=== PATIENT | female | born 1935 | race African-American/Black ===

== ENCOUNTER 2016-11-08 08:51 | Inpatient (IN) | payer OTHER ==
[~2016-11-08] VITALS: Ht 162.6 cm; Wt 63.5 kg
--- NOTE | ~2016-11-08 | H ---
[facility] [place] [address] HISTORY AND PHYSICAL Name: TRISTIN HENDERSON Room #: 407-P ADM IN M.R.#: [id number] Admission: 11/08/16 Attend Phys: Ankur Garrett MD Discharge: Date of : 33 Report #: [id number] THIS REPORT FOR: //name// CC: Ariela Garrett DATE OF SERVICE: 11/08/2016 CHIEF COMPLAINT: Pain in the legs, pain in the abdomen, and generalized weakness. HISTORY OF PRESENT ILLNESS: The patient is an 81-year-old female who comes to the hospital with above complaints. The patient states that she has had her symptoms for a long time. She has had on and off weakness. At this time, she had exacerbation of her abdominal pain, as well as lower extremity pain. She is on gabapentin, but she is not sure what condition she has. In the emergency room, the patient had CT scan of the abdomen, that showed no acute findings. Her creatinine was higher from baseline, at 2.6, from 1.4. She was also found to have urinary tract infection. The patient is hemodynamically stable and afebrile. She has no shortness of breath, no chest pain, dizziness, blurry vision, or other symptoms. PAST MEDICAL HISTORY: 1. Chronic kidney disease stage 3. 2. Hypertension. 3. Status post hemicolectomy, for suspected colon cancer. Final pathology did not show cancer. CURRENT MEDICATIONS: Benazepril/hydrochlorothiazide 10/12.5 mg half pill a day, Voltaren 75 mg b.i.d. as needed, gabapentin 100 mg b.i.d., Zofran 8 mg every 6 hours as needed, ranitidine 150 mg b.i.d., and Tramadol 50 mg q.4 hours as needed. FAMILY HISTORY: Reviewed and not pertinent to the patient's current condition. SOCIAL HISTORY: The patient lives with her children. She does not smoke cigarettes and does not drink alcohol. REVIEW OF SYSTEMS: As above in HPI section. All other system reviews are negative. PHYSICAL EXAMINATION: GENERAL: The patient is an elderly female who looks tired. VITAL SIGNS: Blood pressure is 137/71, heart rate is 56, respiration is 18, and temperature is 97.4. [address] [address] HISTORY AND PHYSICAL Name: TRISTIN HENDERSON Room #: [address] [place] [address] IN M.R.#: [id number] Admission: 11/08/16 Attend Phys: Ankur Garrett MD Discharge: Date of : 33 Report #: [id number] HEENT: Pupils are equal. Eye movements are normal. The patient has anicteric sclerae. Oral mucosa is moist. Ear examination is deferred. NECK: Supple. She has no thyromegaly. No JVD is appreciated. The patient has no carotid bruits. RESPIRATORY: Chest moves symmetrically with breathing. The patient has clear breath sounds bilaterally. She has no wheezes or crackles. CARDIOVASCULAR: The patient has regular rhythm and rate. She has no murmurs, gallops, or rubs. GASTROINTESTINAL: Abdomen is soft, nondistended, and nontender. Bowel sounds are present. Hepatomegaly or splenomegaly is not palpated. The patient has post-colectomy scar on the abdomen. MUSCULOSKELETAL: Range of motion is normal. She has no joint deformities. NEUROLOGIC: The patient is now alert and oriented x3. She has no focal deficits. SKIN: The patient has keloid on the abdomen. No other skin lesions are appreciated. Lymphadenopathy is not palpated. LABS: Basic metabolic profile shows normal electrolytes. Creatinine is 2.6, from recent baseline of 1.4 from December of last year. CBC with differential is normal except with mild anemia, hemoglobin of 10.6, and hematocrit of 31.8. Urinalysis shows white cells between 5 and 15, trace leukoesterase, and bacteria. Chest x-ray shows no infiltrates. ASSESSMENT AND PLAN: 1. Generalized weakness, likely due to dehydration, worsening renal failure, and urinary tract infection. The patient will be started on IV fluids and antibiotics. Urine is submitted for culture. We will check TSH and vitamin B12 levels. 2. Acute kidney injury on chronic kidney disease stage 3. Creatinine is 2.6, from 1.4. Benazepril and hydrochlorothiazide . The patient will be treated with amlodipine for hypertension. 3. Hypertension. As noted, we will treat the patient with amlodipine. 4. Chronic pain, affecting legs and back. The patient is already on tramadol. Gabapentin will be resumed. 5. Deep venous thrombosis prophylaxis. Renally adjusted Lovenox. By: 1431 1537 Ankur Garrett MD /nt
--- NOTE | ~2016-11-08 | EKG ---
[place] [address] [facility] [place] [address] ELECTROCARDIOGRAM REPORT Name: TRISTIN HENDERSON Room #: 407-P ADM IN M.R.#: [id number] Admission: 11/08/16 Attend Phys: Ankur Garrett MD Discharge: Date of : 33 Report #: [id number] THIS REPORT FOR: //name// [facility] ED Test Date: 2016-11-08 Test Time: 09:07:35 Pat Name: TRISTIN HENDERSON Department: Room: 407 Gender: F Old Testament Professor: CHRISTINE : 1935 Requested By: Sung Rangel Order Number: [id number] MD: Dylon Bucio Measurements Intervals [place] Rate: 70 P: 19 NE: 186 QRS: -6 QRSD: 103 T: 50 QT: 402 QTc: 434 Interpretive Statements Sinus rhythm Baseline wander in lead(s) I Compared to ECG 09/18/2015 06:52:44 First degree AV block no longer present Electronically Signed On 11-08-2016 12:46:19 CDT by Dylon Bucio [email or web address] <ELECTRONICALLY SIGNED> By: Dylon Bucio MD 11/08/16 1246 6 6 Dylon Bucio MD /ADRIANO
[~2016-11-08 08:51] MED LIST: ASPIRIN EC81 M1 PO; ATIVAN0.5 MG PO; BACLOFEN 10 MG10 MG PO; BENAZEPRIL HCL10 MG PO; BENAZEPRIL-HCT1 EA11 PO; BENAZEPRIL-HCT1 EAC1 PO; BENAZEPRIL-HCT1 EACH PO; DIAZEPAM 5 MG5 M1 PO; DICLOFENAC SODI75 M1 PO; DICLOFENAC SODI75 MG PO; FLEXERIL PO; GABAPENTIN 100100 MG PO; GABAPENTIN100 MG PO; NEURONTIN 300300 M1; NORCO 5-325 TA1 EACH PO; NORVASC5 MG PO; TRAMADOL 50 MG50 MG PO; TRAMADOL/APAP; ULTRAM 50MG TAB50 MG PO; VALIUM5 MG PO; VOLTAREN GEL 1100 G1 TOP; ZANTAC 150MG T150 M1 PO; ZANTAC 150MG T150 MG PO; ZOFRAN ODT8 MG PO; [UNRECOGNIZED DRUG - REMARK]
[2016-11-08 08:52] VITALS: BP 125/71
[2016-11-08 09:10] LABS: URINE BILIRUBIN NEGATIVE (Negative); URINE BLOOD NEGATIVE (Negative); URINE COLOR YELLOW; URINE GLUCOSE-RANDOM* NEGATIVE (Negative); URINE KETONES NEGATIVE (Negative); URINE PROTEIN (DIPSTICK) NEGATIVE (Negative); URINE UROBILINOGEN 0.2 E.U./dl (0.2-1.0)
[2016-11-08 09:17] LABS: URINE LEUKOCYTES-REFLEX 1+ (Negative)
[2016-11-08 09:18] LABS: CASTS None Seen /LPF (None Seen); CRYSTALS None Seen /LPF (None Seen); SQUAMOUS >10 Many /LPF (0-3); URINE RBC None Seen /HPF (0-2); URINE WBC-REFLEX 6-15 Few /HPF (0-5)
[2016-11-08 09:26] LABS: HEMATOCRIT 31.8 % (37.0-47.0); HEMOGLOBIN 10.6 gm/dL (12.0-15.0); MCH 29.8 pg (26.0-34.0); MCHC 33.2 g/dL (28.0-37.0); MCV 89.8 fL (80.0-100.0); RBC 3.54 mil/uL (4.20-5.00); RDW 13.5 % (10.5-14.5); WBC 4.3 thou/uL (4.0-11.0)
[2016-11-08 09:35] LABS: ANION GAP 5 mmol/L (7-16); BUN 41 mg/dL (7-18); CALCIUM 9.5 mg/dL (8.5-10.1); CHLORIDE 106 mmol/L (98-107); CO2 27 mmol/L (21-32); CREATININE 2.6 mg/dL (0.6-1.0); GLUCOSE 87 mg/dL (74-106); POTASSIUM 4.7 mmol/L (3.5-5.1); SODIUM 138 mmol/L (136-145)
[2016-11-08 09:43] LABS: ALBUMIN 3.8 g/dL (3.4-5.0); ALKALINE PHOSPHATASE 113 U/L (46-116); SGOT 22 U/L (15-37); SGPT 19 U/L (30-65); TOTAL BILIRUBIN 0.8 mg/dL (<0.1-1.0); TOTAL PROTEIN 7.6 g/dL (6.4-8.2); TROPONIN-I < 0.04 ng/mL (<0.04-0.07)
[2016-11-08 10:44] VITALS: BP 134/70
[2016-11-08 11:22] VITALS: BP 132/66
[2016-11-08 11:35] VITALS: BP 137/71
[2016-11-08 15:26] LABS: TSH 1.347 uIU/mL (0.358-3.740)
[2016-11-08 17:13] VITALS: BP 129/62
[2016-11-08 19:13] VITALS: BP 148/59
[2016-11-09 03:47] LABS: ABSOLUTE NEUTROPHILS 2.9 thou/uL (1.4-8.2); EOSINOPHILS 3.4 % (0.0-3.0); HEMATOCRIT 29.5 % (37.0-47.0); HEMOGLOBIN 9.9 gm/dL (12.0-15.0); LYMPHOCYTES 26.1 % (24.0-44.0); MCH 30.1 pg (26.0-34.0); MCHC 33.6 g/dL (28.0-37.0); MCV 89.8 fL (80.0-100.0); MONOCYTES 8.2 % (1.0-8.0); PLATELET COUNT 143 thou/uL (150-400); POLYS 61.3 % (36.0-66.0); RBC 3.28 mil/uL (4.20-5.00); RDW 13.4 % (10.5-14.5); WBC 4.7 thou/uL (4.0-11.0)
[2016-11-09 04:00] VITALS: BP 146/69
[2016-11-09 04:01] LABS: CALCIUM 9.1 mg/dL (8.5-10.1); CREATININE 1.8 mg/dL (0.6-1.0); POTASSIUM 4.3 mmol/L (3.5-5.1)
[2016-11-09 05:59] LABS: MANUAL DIFF NO
[2016-11-09 08:09] VITALS: BP 127/70
[2016-11-09 17:44] VITALS: BP 134/67
[2016-11-09 19:21] VITALS: BP 162/75
[2016-11-10 03:55] VITALS: BP 169/82
[2016-11-10 05:47] LABS: ABSOLUTE NEUTROPHILS 2.9 thou/uL (1.4-8.2); BASOPHILS 1.5 % (0.0-2.0); EOSINOPHILS 2.5 % (0.0-3.0); HEMATOCRIT 33.3 % (37.0-47.0); HEMOGLOBIN 10.9 gm/dL (12.0-15.0); LYMPHOCYTES 25.7 % (24.0-44.0); MCH 29.7 pg (26.0-34.0); MCHC 32.8 g/dL (28.0-37.0); MCV 90.7 fL (80.0-100.0); MONOCYTES 8.4 % (1.0-8.0); PLATELET COUNT 194 thou/uL (150-400); POLYS 61.9 % (36.0-66.0); RBC 3.67 mil/uL (4.20-5.00); RDW 13.6 % (10.5-14.5); WBC 4.7 thou/uL (4.0-11.0)
[2016-11-10 05:51] LABS: MANUAL DIFF NO
[2016-11-10 05:53] LABS: CALCIUM 9.4 mg/dL (8.5-10.1); CREATININE 1.4 mg/dL (0.6-1.0)
[2016-11-10 08:00] VITALS: BP 154/91
[2016-11-10] MEDS ORDERED: AMLODIPINE BESYL5 M1 PO (11:29)
[2016-11-10] MEDS ORDERED: CEFPODOXIME PR200 M1 PO (11:29)
[2016-11-10 12:58] VITALS: BP 154/91
[2016-11-10 16:05] VITALS: BP 154/91
== END 2016-11-10 13:42 | disposition home health service (06) | DRG 683 ==
LOC: ER 08:51 → 4N 11:02 → EROBS 11:02 → 4N 11:24 → ENTRNSPT 11-10 13:29 → EDTRNSPTSTS 11-10 13:33 → 4N 11-10 13:42
PROVIDERS: Emergency Medicine; Internal Medicine Endocrinology, Diabetes & Metabolism
DX: N17.9 Acute kidney failure, unspecified (principal); N39.0 Urinary tract infection, site not specified; N18.3 Chronic kidney disease, stage 3 (moderate); E86.0 Dehydration; I12.9 Hypertensive chronic kidney disease with stage 1 through stage 4 chronic kidney disease, or unspecified chronic kidney disease; G89.29 Other chronic pain; Z88.0 Allergy status to penicillin; Z91.041 Radiographic dye allergy status
CPT/HCPCS: 10091

== ENCOUNTER 2017-01-18 10:22 | Emergency (ER) | payer OTHER ==
[~2017-01-18] VITALS: Ht 162.6 cm; Wt 63.5 kg
[~2017-01-18 10:22] MED LIST changes: +AMLODIPINE BESYL5 M1 PO; +CEFPODOXIME PR200 M1 PO
[2017-01-18 11:02] LABS: URINE BILIRUBIN NEGATIVE (Negative); URINE BLOOD NEGATIVE (Negative); URINE COLOR YELLOW; URINE GLUCOSE-RANDOM* NEGATIVE (Negative); URINE KETONES NEGATIVE (Negative); URINE NITRITE NEGATIVE (Negative); URINE PROTEIN (DIPSTICK) NEGATIVE (Negative); URINE SPECIFIC GRAVITY 1.015 (1.003-1.035); URINE UROBILINOGEN 0.2 E.U./dl (0.2-1.0)
[2017-01-18] MEDS ORDERED: VALIUM5 MG PO (11:10)
[2017-01-18] MEDS ORDERED: NEURONTIN300 MG PO (11:12)
[2017-01-18] MEDS ORDERED: VITAMIN D250000 UNIT PO (11:12)
[2017-01-18] MEDS ORDERED: DICLOFENAC SODI75 MG PO (11:13)
[2017-01-18] MEDS ORDERED: TRAMADOL 50 MG50 MG PO (11:13)
== END 2017-01-18 11:24 | disposition home or self-care (01) ==
LOC: ER 10:22
PROVIDERS: Emergency Medicine
DX: M54.5 Low back pain (principal)

== ENCOUNTER 2017-08-29 07:53 | Emergency (ER) | payer OTHER ==
[~2017-08-29] VITALS: Ht 162.6 cm; Wt 59.0 kg
--- NOTE | ~2017-08-29 | EKG ---
[place] [address] [facility] [place] [address] ELECTROCARDIOGRAM REPORT Name: BRAXTON HENDERSONJOSE ROBERTO TONEY [facility] [id number] Admission: 08/29/17 Attend Phys: Discharge: 08/29/17 Date of : 33 Report #: [id number] THIS REPORT FOR: //name// [facility] ED Test Date: 2017-08-29 Test Time: 08:14:09 Pat Name: TRISTIN HENDERSON Department: Room: Gender: F Electronic Systems Technician: : 1935 Requested By: Norma Chaves Order Number: [id number] MD: Collins Khan Measurements Intervals [place] Rate: 65 P: 11 [place]: 194 QRS: -9 QRSD: 98 T: 72 QT: 388 QTc: 404 Interpretive Statements Sinus rhythm Poor R wave progression Compared to ECG 11/08/2016 09:07:35 No significant change was found Electronically Signed On 08-31-2017 9:14:25 CDT by Collins Khan [email or web address] <ELECTRONICALLY SIGNED> By: Collins Khan MD, [facility] 08/31/17913 3 3 Collins Khan MD, FACC /EPI
[~2017-08-29 07:53] MED LIST changes: +NEURONTIN300 MG PO; +VITAMIN D250000 UNIT PO
[2017-08-29 08:37] LABS: ABSOLUTE NEUTROPHILS 2.5 thou/uL (1.4-8.2); BASOPHILS 1.2 % (0.0-2.0); EOSINOPHILS 2.5 % (0.0-3.0); HEMATOCRIT 31.1 % (37.0-47.0); HEMOGLOBIN 10.7 gm/dL (12.0-15.0); LYMPHOCYTES 30.3 % (24.0-44.0); MCH 29.9 pg (26.0-34.0); MCHC 34.3 g/dL (28.0-37.0); MCV 87.3 fL (80.0-100.0); MONOCYTES 7.5 % (1.0-8.0); PLATELET COUNT 200 thou/uL (150-400); POLYS 58.5 % (36.0-66.0); RBC 3.57 mil/uL (4.20-5.00); RDW 13.6 % (10.5-14.5); WBC 4.3 thou/uL (4.0-11.0)
[2017-08-29 08:46] LABS: ANION GAP 5 mmol/L (7-16); BUN 18 mg/dL (7-18); CALCIUM 9.2 mg/dL (8.5-10.1); CHLORIDE 111 mmol/L (98-107); CO2 26 mmol/L (21-32); CREATININE 1.3 mg/dL (0.6-1.0); GLUCOSE 94 mg/dL (74-106); SODIUM 142 mmol/L (136-145)
[2017-08-29 08:55] LABS: TROPONIN-I <0.06 ng/mL (<0.06)
[2017-08-29] MEDS ORDERED: TRAMADOL 50 MG50 MG PO (09:08)
== END 2017-08-29 09:36 | disposition home or self-care (01) ==
LOC: ER 07:53
PROVIDERS: Emergency Medicine
DX: M54.9 Dorsalgia, unspecified (principal); I10 Essential (primary) hypertension; Z91.041 Radiographic dye allergy status; Z88.0 Allergy status to penicillin

== ENCOUNTER 2017-09-11 15:27 | Emergency (ER) | payer OTHER ==
[~2017-09-11] VITALS: Ht 162.6 cm; Wt 59.4 kg
[2017-09-11 16:07] LABS: ABSOLUTE NEUTROPHILS 3.8 thou/uL (1.4-8.2); EOSINOPHILS 1.6 % (0.0-3.0); HEMATOCRIT 34.4 % (37.0-47.0); HEMOGLOBIN 11.4 gm/dL (12.0-15.0); LYMPHOCYTES 22.7 % (24.0-44.0); MCH 29.7 pg (26.0-34.0); MCHC 33.3 g/dL (28.0-37.0); MCV 89.2 fL (80.0-100.0); MONOCYTES 7.1 % (1.0-8.0); PLATELET COUNT 217 thou/uL (150-400); POLYS 67.6 % (36.0-66.0); RBC 3.86 mil/uL (4.20-5.00); RDW 14.1 % (10.5-14.5); WBC 5.6 thou/uL (4.0-11.0)
[2017-09-11 16:15] LABS: CREATININE 1.6 mg/dL (0.6-1.0); POTASSIUM 3.4 mmol/L (3.5-5.1)
[2017-09-11 16:21] LABS: ALBUMIN 3.7 g/dL (3.4-5.0); DIRECT BILIRUBIN 0.1 mg/dL (<0.1-0.3); TOTAL BILIRUBIN 0.7 mg/dL (<0.1-1.0); TOTAL PROTEIN 7.6 g/dL (6.4-8.2)
[2017-09-11 16:55] LABS: URINE BILIRUBIN NEGATIVE (Negative); URINE BLOOD NEGATIVE (Negative); URINE CLARITY CLEAR; URINE COLOR YELLOW; URINE GLUCOSE-RANDOM* NEGATIVE (Negative); URINE KETONES NEGATIVE (Negative); URINE LEUKOCYTES NEGATIVE (Negative); URINE NITRITE NEGATIVE (Negative); URINE PROTEIN (DIPSTICK) NEGATIVE (Negative); URINE SPECIFIC GRAVITY 1.015 (1.005-1.035)
[2017-09-11] MEDS ORDERED: COLACE100 MG PO (17:14)
[2017-09-11] MEDS ORDERED: CITRATE OF MAG296 ML PO (17:14)
== END 2017-09-11 18:08 | disposition home or self-care (01) ==
LOC: ER 15:27
PROVIDERS: Emergency Medicine
DX: E86.0 Dehydration (principal); K59.00 Constipation, unspecified; I10 Essential (primary) hypertension; Z85.028 Personal history of other malignant neoplasm of stomach; Z91.041 Radiographic dye allergy status; Z88.0 Allergy status to penicillin

== ENCOUNTER 2017-12-14 16:19 | Emergency (ER) | payer OTHER ==
[~2017-12-14] VITALS: Ht 167.6 cm; Wt 58.5 kg
--- NOTE | ~2017-12-14 | EKG ---
[address] [address] ELECTROCARDIOGRAM REPORT Name: TRISTIN HENDERSON [id number] Admission: 12/14/17 Attend Phys: Discharge: 12/14/17 Date of : 33 Report #: [id number] THIS REPORT FOR: //name// [facility] ED Test Date: 2017-12-14 Test Time: 16:35:49 Pat Name: TRISTIN HENDERSON Department: Room: Gender: F Taker Off Braker Machine: MIAH : 1935 Requested By: Mary Ibrahim Order Number: [id number] MD: Luis Eduardo Burgess Measurements Intervals [place] Rate: 83 P: 36 [place]: 189 QRS: 27 QRSD: 98 T: 35 QT: 398 QTc: 468 Interpretive Statements Sinus rhythm Probable left atrial enlargement Compared to ECG 08/29/2017 08:14:09 Poor R-wave progression no longer present Electronically Signed On 12-15-2017 17:08:34 CDT by Luis Eduardo Burgess [email or web address] <ELECTRONICALLY SIGNED> By: Luis Eduardo Burgess MD 12/15/17 1708 34 34 Luis Eduardo Burgess MD /ADRIANO
[~2017-12-14 16:19] MED LIST changes: +CITRATE OF MAG296 ML PO; +COLACE100 MG PO
[2017-12-14 17:28] LABS: ANION GAP 10 mmol/L (7-16); BUN 15 mg/dL (7-18); CALCIUM 10.3 mg/dL (8.5-10.1); CHLORIDE 106 mmol/L (98-107); CO2 22 mmol/L (21-32); CREATININE 1.3 mg/dL (0.6-1.0); GLUCOSE 97 mg/dL (74-106); POTASSIUM 4.3 mmol/L (3.5-5.1); SODIUM 138 mmol/L (136-145)
[2017-12-14 17:37] LABS: ALBUMIN 3.6 g/dL (3.4-5.0); SGOT 24 U/L (15-37); SGPT 15 U/L (30-65); TOTAL BILIRUBIN 0.7 mg/dL (<0.1-1.0); TOTAL PROTEIN 8.1 g/dL (6.4-8.2); TROPONIN-I <0.06 ng/mL (<0.06)
[2017-12-14 17:44] LABS: ABSOLUTE NEUTROPHILS 3.8 thou/uL (1.4-8.2); BASOPHILS 1.1 % (0.0-2.0); EOSINOPHILS 2.2 % (0.0-3.0); HEMATOCRIT 33.7 % (37.0-47.0); HEMOGLOBIN 11.6 gm/dL (12.0-15.0); LYMPHOCYTES 21.7 % (24.0-44.0); MCH 30.6 pg (26.0-34.0); MCHC 34.4 g/dL (28.0-37.0); MONOCYTES 6.7 % (1.0-8.0); PLATELET COUNT 218 thou/uL (150-400); POLYS 68.3 % (36.0-66.0); RBC 3.78 mil/uL (4.20-5.00); RDW 14.5 % (10.5-14.5); WBC 5.6 thou/uL (4.0-11.0)
[2017-12-14] MEDS ORDERED: TRAMADOL 50 MG50 MG PO (17:57)
[2017-12-14] MEDS ORDERED: MOBIC7.5 MG PO (17:57)
== END 2017-12-14 18:11 | disposition home or self-care (01) ==
LOC: ER 16:19
PROVIDERS: Nurse Practitioner Family
DX: M54.6 Pain in thoracic spine (principal); I10 Essential (primary) hypertension; Z88.0 Allergy status to penicillin; Z91.041 Radiographic dye allergy status

== ENCOUNTER 2018-05-27 22:56 | Emergency (ER) | payer OTHER ==
[~2018-05-27] VITALS: Ht 165.1 cm; Wt 68.0 kg
[~2018-05-27 22:56] MED LIST changes: +MOBIC7.5 MG PO
[2018-05-27 23:57] LABS: ABSOLUTE NEUTROPHILS 3.8 thou/uL (1.4-8.2); EOSINOPHILS 1.2 % (0.0-3.0); HEMATOCRIT 32.7 % (37.0-47.0); HEMOGLOBIN 11.1 gm/dL (12.0-15.0); LYMPHOCYTES 27.7 % (24.0-44.0); MCH 29.8 pg (26.0-34.0); MCHC 33.9 g/dL (28.0-37.0); MCV 88.1 fL (80.0-100.0); MONOCYTES 9.9 % (1.0-8.0); PLATELET COUNT 214 thou/uL (150-400); POLYS 60.2 % (36.0-66.0); RDW 13.8 % (10.5-14.5); WBC 6.3 thou/uL (4.0-11.0)
[2018-05-28 00:02] LABS: CALCIUM 9.4 mg/dL (8.5-10.1); CREATININE 1.5 mg/dL (0.6-1.0); MAGNESIUM 2.2 mg/dL (1.8-2.4); POTASSIUM 3.7 mmol/L (3.5-5.1)
[2018-05-28 00:38] VITALS: BP 169/84
== END 2018-05-28 00:39 | disposition home or self-care (01) ==
LOC: ER 22:56
PROVIDERS: Emergency Medicine
DX: R25.2 Cramp and spasm (principal); R10.84 Generalized abdominal pain; I10 Essential (primary) hypertension; Z91.041 Radiographic dye allergy status; Z88.0 Allergy status to penicillin

== ENCOUNTER 2018-09-01 12:21 | Emergency (ER) | payer OTHER ==
[~2018-09-01] VITALS: Ht 165.1 cm; Wt 61.2 kg
[2018-09-01 13:37] LABS: ABSOLUTE NEUTROPHILS 3.2 thou/uL (1.4-8.2); EOSINOPHILS 1.3 % (0.0-3.0); HEMATOCRIT 34.6 % (37.0-47.0); HEMOGLOBIN 11.4 gm/dL (12.0-15.0); LYMPHOCYTES 23.7 % (24.0-44.0); MCH 29.4 pg (26.0-34.0); MCV 89.2 fL (80.0-100.0); MONOCYTES 8.3 % (1.0-8.0); PLATELET COUNT 206 thou/uL (150-400); POLYS 65.7 % (36.0-66.0); RBC 3.89 mil/uL (4.20-5.00); RDW 13.7 % (10.5-14.5); WBC 4.9 thou/uL (4.0-11.0)
[2018-09-01 13:47] LABS: URINE BILIRUBIN NEGATIVE (Negative); URINE BLOOD NEGATIVE (Negative); URINE CLARITY CLEAR; URINE COLOR YELLOW; URINE GLUCOSE-RANDOM* NEGATIVE (Negative); URINE KETONES NEGATIVE (Negative); URINE LEUKOCYTES-REFLEX NEGATIVE (Negative); URINE NITRITE-REFLEX NEGATIVE (Negative); URINE PROTEIN (DIPSTICK) NEGATIVE (Negative); URINE UROBILINOGEN 0.2 E.U./dl (0.2-1.0)
[2018-09-01 13:48] LABS: ANION GAP 6 mmol/L (7-16); BUN 13 mg/dL (7-18); CALCIUM 9.8 mg/dL (8.5-10.1); CHLORIDE 108 mmol/L (98-107); CO2 28 mmol/L (21-32); CREATININE 1.5 mg/dL (0.6-1.0); GLUCOSE 141 mg/dL (74-106); POTASSIUM 3.4 mmol/L (3.5-5.1); SODIUM 142 mmol/L (136-145)
[2018-09-01 13:58] LABS: ALBUMIN 3.4 g/dL (3.4-5.0); LIPASE 156 U/L (73-393); SGOT 12 U/L (15-37); SGPT 14 U/L (30-65); TOTAL BILIRUBIN 0.5 mg/dL (<0.1-1.0); TOTAL PROTEIN 7.3 g/dL (6.4-8.2); TROPONIN-I <0.06 ng/mL (<0.06)
[2018-09-01 18:26] VITALS: BP 183/78
--- NOTE | 2018-09-02 09:42 | EKG ---
[place] [address] [facility] [place] [address] ELECTROCARDIOGRAM REPORT Name: TRISTIN HENDERSON [facility] [id number] ������������������ Admission: 09/01/18 ������������������ Attend Phys: Discharge: 09/01/18 ������������������ Date of : 33 Report #: [id number] ����������������������������������������������������������������� [id number] THIS REPORT FOR: //name// [facility] ED Test Date: 2018-09-01 Test Time: 13:32:39 Pat Name: TRISTIN HENDERSON Department: Room: Gender: F Cellular Equipment Repairer: DAYNE : 1935 Requested By: Elliot Castle Order Number: [id number] MD: Collins Khan Measurements Intervals [place] Rate: 73 P: 52 FL: 211 QRS: -4 QRSD: 91 T: 73 QT: 410 QTc: 452 Interpretive Statements Sinus rhythm Possible anteroseptal infarct, age indeterminate no previous ECGs available for comparison Electronically Signed On 09-02-2018 9:42:11 CDT by Collins Khna [email or web address] ��������������������������������������������� <ELECTRONICALLY SIGNED> ���������������������������������������� By: Collins Khan MD, [facility] ��������������������������������������������� 09/02/18 0942 1332 1332 Collins Khan MD, FACC /EPI
== END 2018-09-01 18:29 | disposition home or self-care (01) ==
LOC: ER 12:21
PROVIDERS: Emergency Medicine
DX: I10 Essential (primary) hypertension (principal); R42 Dizziness and giddiness; Z91.14 Patient's other noncompliance with medication regimen; Z91.041 Radiographic dye allergy status; Z88.0 Allergy status to penicillin

== ENCOUNTER 2018-12-13 15:39 | Inpatient (IN) | payer OTHER ==
[~2018-12-13] VITALS: Ht 165.1 cm; Wt 64.7 kg
[2018-12-13 15:41] VITALS: BP 193/111
[2018-12-13 16:28] LABS: URINE BILIRUBIN NEGATIVE (Negative); URINE BLOOD NEGATIVE (Negative); URINE CLARITY CLEAR; URINE COLOR YELLOW; URINE GLUCOSE-RANDOM* NEGATIVE (Negative); URINE KETONES NEGATIVE (Negative); URINE LEUKOCYTES-REFLEX NEGATIVE (Negative); URINE NITRITE-REFLEX NEGATIVE (Negative); URINE PROTEIN (DIPSTICK) NEGATIVE (Negative); URINE SPECIFIC GRAVITY 1.015 (1.005-1.035); URINE UROBILINOGEN 0.2 E.U./dl (0.2-1.0)
[2018-12-13 16:31] LABS: ABSOLUTE NEUTROPHILS 3.9 thou/uL (1.4-8.2); BASOPHILS 0.8 % (0.0-2.0); EOSINOPHILS 1.4 % (0.0-3.0); HEMATOCRIT 38.3 % (37.0-47.0); HEMOGLOBIN 12.4 gm/dL (12.0-15.0); LYMPHOCYTES 29.7 % (24.0-44.0); MCH 29.5 pg (26.0-34.0); MCHC 32.3 g/dL (28.0-37.0); MCV 91.4 fL (80.0-100.0); MONOCYTES 8.7 % (1.0-8.0); PLATELET COUNT 238 thou/uL (150-400); POLYS 59.4 % (36.0-66.0); RBC 4.19 mil/uL (4.20-5.00); RDW 13.9 % (10.5-14.5); WBC 6.6 thou/uL (4.0-11.0)
[2018-12-13 16:35] LABS: CALCIUM 9.8 mg/dL (8.5-10.1); CREATININE 1.4 mg/dL (0.6-1.0); POTASSIUM 3.8 mmol/L (3.5-5.1)
[2018-12-13 16:43] LABS: ALBUMIN 3.7 g/dL (3.4-5.0); DIRECT BILIRUBIN 0.1 mg/dL (<0.1-0.3); TOTAL BILIRUBIN 0.5 mg/dL (<0.1-1.0); TOTAL PROTEIN 8.4 g/dL (6.4-8.2)
[2018-12-13] MEDS ORDERED: NEURONTIN 300300 M1 PO (17:09)
--- NOTE | 2018-12-13 17:09 | NUR ---
RANDI RICH (DAUGHTER, DPOA) [phone] (HOME),
[2018-12-13 19:55] VITALS: BP 162/84
[2018-12-13 20:00] VITALS: BP 184/96
[2018-12-13 21:53] VITALS: BP 144/86
--- NOTE | 2018-12-14 03:53 | NUR ---
Fleets enema administered at this time as ordered,pt tolerated well. Will await results. Pt admitted from ER at 1999 via cart accompanied by family members. Admission paperwork signed. Pt is A/OX2,confused making needs known at times. Fall precautions implemented. Denied pain on admission. Sacral wound noted,pictures taken. Pt is cont/incont of B&B.Up with assist of 1 RW/GB. IVF infusing via LAC w/o difficulties. Pt c/o abd pain at this time,order obtained for Tylenol PO,Nina CIRCULATING NURSE. Will continue to monitor pt.
--- NOTE | 2018-12-14 04:17 | NUR ---
Pt had a large semi-formed Bowel movement after the enema,vrbalizes feeling much better. Will continue to monitor pt.
[2018-12-14 04:43] VITALS: BP 174/84
[2018-12-14 06:33] LABS: HEMOGLOBIN 11.8 gm/dL (12.0-15.0); MCH 29.6 pg (26.0-34.0); MCHC 32.8 g/dL (28.0-37.0); MCV 90.2 fL (80.0-100.0); RBC 3.99 mil/uL (4.20-5.00); RDW 13.7 % (10.5-14.5); WBC 6.3 thou/uL (4.0-11.0)
[2018-12-14 06:47] LABS: CALCIUM 9.3 mg/dL (8.5-10.1); CREATININE 1.2 mg/dL (0.6-1.0)
[2018-12-14 07:19] VITALS: BP 169/76
--- NOTE | 2018-12-14 08:02 | EKG ---
[place] [address] [facility] [place] [address] ELECTROCARDIOGRAM REPORT Name: SANTIAGOTRISTIN DAWNA Room #: 446-P ADM IN M.R.#: [id number] Admission: 12/13/18 Attend Phys: Eren Maguire MD Discharge: Date of : 33 Report #: [id number] THIS REPORT FOR: //name// [facility] ED Test Date: 2018-12-13 Test Time: 16:27:28 Pat Name: TRISTIN HENDERSON Department: Room: 446 Gender: F Superintendent Laundry: MIAH : 1935 Requested By: Amaris Bledsoe Order Number: [id number] MD: Collins Khan Measurements Intervals [place] Rate: 89 P: 54 [place]: 37 QRS: 22 QRSD: 88 T: 76 QT: 369 QTc: 449 Interpretive Statements Sinus rhythm Left atrial enlargement Poor R wave progression Compared to ECG 09/01/2018 13:32:39 Septal Q waves are less prominent Electronically Signed On 12-14-2018 8:01:56 CDT by Collins Khan [email or web address] <ELECTRONICALLY SIGNED> By: Collins Khan MD, [facility] 12/14/18 0801 1627 162 Collins Khan MD, [facility] /EPI
--- NOTE | 2018-12-14 10:14 | NUR ---
WOUND CARE CONSULT; I WAS CONSULTED FOR A WOUND TO THE SACRUM. I FOUND NO WOUNDS. A SAW A PICTURE ON THE CHART AND ASSESSSED AGAIN. THIS PATIENT HAS NO SACRAL WOUND. DISCUSSED WITH RN. RECOMMENDATIONS; NONE.CONSULT ENTERED IN ERROR. I WILL SIGN OFF
--- NOTE | 2018-12-14 14:57 | NUR ---
INITIAL ASSESSMENT: Pt evaluated for d/c planning needs. Reviewed chart and spoke with nurse, pt and pt's daughter. Pt lives in house with son and daughter. Pt was independent with ADL's. Pt uses walker or cane for ambulation. Pt's daughter is paid caregiver through [employer] Pt has caregiver 4 hours/day, 7 days/week. Pt has not had home health in the past. Plan is for pt to return home on d/c from hospital. Will remain available to assist as needed.
[2018-12-14 16:12] VITALS: BP 180/99
--- NOTE | 2018-12-14 19:39 | NUR ---
ASSUMED CARE OF PATIENT AT 0715, PATIENT ALERT WITH CONFUSION/FORGETFUL. PATIENT DENIES PAIN THIS AM, BUT C/O ABDOMEN PAIN, RECEIVED TYLENOL 650 MG X 1 THIS SHIFT, WITH GOOF RELIEF. PATIENT HAS IV LEFT AC, WENT BAD, THIS RN TRIED TO OBTAIN IV, MULTIPLE OTHER NURSES TRIED, NOT ABLE TO OBTAIN. PAIUL.IV TEAM CAME AT END OF THE SHIFT, PLACED IV LEFT FOREARM, WITH NS AT 75CC/HR. PATIENT APPETITE NOT GOOD, SUPPLEMENTS ORDERED ALL MEALS, SHE ONLY DRANK 25% AT LUNCH. PATIENT ON CLEAR LIQUID DIET. PATIENT RECEIVED MAG.CITRATE X 1 BOTTLE, WITH SMALL AMT OF RESULTS. FAMILY MEMBERS AT BEDSIDE MOST OF THE DAY. KUB ORDERED FOR TOMORROW. THIS RN CALLED CONSULT ONCOLOGY/DR SHARPE, SPOKE WITH CHRISTAL. WILL CONTINUE TO MONITOR. FALL PRECAUTIONS IN PLACE.
[2018-12-14 20:07] VITALS: BP 195/107
[2018-12-14 22:12] VITALS: BP 181/92
[2018-12-15 01:00] VITALS: BP 17/89; BP 172/89
--- NOTE | 2018-12-15 03:15 | NUR ---
ASSUMED CARE OF PT @1900 PT ASSESSED AT START OF SHIFT ALERT AND ORIENTED TO SELF AND SITUATION. IV INTACT AND FLUIDS INFUSING. DTR AT BEDSIDE FOR THE NIGHT. C/O PAIN IN ABD TYELNOL GIVEN AND PT ROCIO IT WELL. PT BP HAS BEEN RUNNING HIGH, 181/92 DTR STATED PT TAKES BP MEDS AT HOME AND HASN'T TAKEN ONE SINCE ARRIVAL CALLED. THIS NURSE CALLED ONCALL DRAWER MAKER AND ORDER PLACED FOR BP MEDS. PRN HYDRALAZINE ADMINISTERED AND BP BACK TO 172/89 DAILY BP MEDS AMYLODIPINE PLACED IN EMAR WILL CONT TO MONITOR. FALL PREC IN PLACE WILL CONT WITH POC TILL EOS.
[2018-12-15 05:25] VITALS: BP 144/72
[2018-12-15 07:35] VITALS: BP 191/100
[2018-12-15 08:36] LABS: ABSOLUTE NEUTROPHILS 4.9 thou/uL (1.4-8.2); BASOPHILS 0.6 % (0.0-2.0); EOSINOPHILS 0.8 % (0.0-3.0); HEMATOCRIT 36.2 % (37.0-47.0); HEMOGLOBIN 11.9 gm/dL (12.0-15.0); LYMPHOCYTES 18.5 % (24.0-44.0); MCH 29.7 pg (26.0-34.0); MCHC 32.9 g/dL (28.0-37.0); MCV 90.2 fL (80.0-100.0); MONOCYTES 6.4 % (1.0-8.0); PLATELET COUNT 275 thou/uL (150-400); POLYS 73.7 % (36.0-66.0); RBC 4.01 mil/uL (4.20-5.00); RDW 13.7 % (10.5-14.5); WBC 6.6 thou/uL (4.0-11.0)
[2018-12-15 08:45] LABS: ALBUMIN 3.4 g/dL (3.4-5.0); CALCIUM 9.4 mg/dL (8.5-10.1); CREATININE 1.2 mg/dL (0.6-1.0); MAGNESIUM 2.4 mg/dL (1.8-2.4); POTASSIUM 3.6 mmol/L (3.5-5.1); TOTAL BILIRUBIN 0.7 mg/dL (<0.1-1.0); TOTAL PROTEIN 7.5 g/dL (6.4-8.2)
[2018-12-15 11:34] VITALS: BP 155/88
[2018-12-15 18:38] VITALS: BP 180/93
[2018-12-15 20:09] VITALS: BP 147/95
--- NOTE | 2018-12-15 20:52 | NUR ---
ASSUMED CARE OF PATIENT AT 0715, PATIENT ALERT WITH CONFUSION. PATIENT UP WITH MIN ASSIST WITH GAIT BELT AND WALKER. PATIENT NPO AT ABOUT 1200 UNTIL 1700 DUE TO ULTRASOUND OF ABDOMEN, ALSO LUNG SCAN ORDERED, CHEST X-RAY ORDERED. PATIENT HAS MOMENT SO F MORE CONFUSION THROUGHOUT THE SHIFT, MULTIPLE FAAMILY MEMBERS IN ROOM ALL DAY. IV FLUIDS D/C, PATIENT HAS LEFT FOREARM IV IN PLACE. KUB ALSO ORDERED AND DONE, SHOWED LARGE AMT OF STOOL. GOLYTE ORDERED PER DR SMITH, PATIENT STARTED DRINKING SMALL AMT AFTER RETURNING FROM RADIOLOGY. B/P ELEVATED THIS AM, RECEIVED HYDRALAZINE PRN, WITH B/P DECREASED 155/88. DR HDEZ HERE TO SEE THE PATIENT ANDSPOKE WITH THE FAMILY ALSO, NOT SURE OF WHAT THEY WANT TO DO AT THIS TIME. WILL CONTINUE TO MONITOR.
[2018-12-16 05:29] LABS: ABSOLUTE NEUTROPHILS 4.5 thou/uL (1.4-8.2); BASOPHILS 0.7 % (0.0-2.0); HEMATOCRIT 35.5 % (37.0-47.0); HEMOGLOBIN 11.7 gm/dL (12.0-15.0); LYMPHOCYTES 24.8 % (24.0-44.0); MCH 29.4 pg (26.0-34.0); MCHC 32.9 g/dL (28.0-37.0); MCV 89.3 fL (80.0-100.0); MONOCYTES 11.4 % (1.0-8.0); PLATELET COUNT 303 thou/uL (150-400); POLYS 62.1 % (36.0-66.0); RBC 3.97 mil/uL (4.20-5.00); RDW 13.7 % (10.5-14.5); WBC 7.2 thou/uL (4.0-11.0)
[2018-12-16 06:05] LABS: ALBUMIN 3.2 g/dL (3.4-5.0); CALCIUM 9.2 mg/dL (8.5-10.1); CREATININE 1.3 mg/dL (0.6-1.0); MAGNESIUM 2.5 mg/dL (1.8-2.4); PHOSPHORUS 2.7 mg/dL (2.5-4.9); POTASSIUM 3.4 mmol/L (3.5-5.1); TOTAL BILIRUBIN 1.1 mg/dL (<0.1-1.0)
--- NOTE | 2018-12-16 06:20 | NUR ---
ASSUMED CARE OF PT @1900 PT ASSESSED AT START OF SHIFT A&OX2 WITH CONFUSION. C/O IN ABD TYLENOL GIVEN FOR PAIN AND PT SLEPT THROUGH THE NIGHT. THIS NURSE ENCOURAGED PT TO DRINK GOLYTELY TO HELP WITH BOWEL. PT UP WITH ASSISTX1 TO THE BATHROOM DTR AT BEDSIDE FOR THE NIGHT WILL CONT WITH POC TILL EOS
[2018-12-16 11:21] VITALS: BP 152/87
[2018-12-16 17:53] VITALS: BP 151/88
[2018-12-17 00:06] VITALS: BP 128/70
--- NOTE | 2018-12-17 02:10 | NUR ---
ASSUMED CARE OF PT @1900 PT ASSESSED AT START OF SHIFT ALERT TO SELF AND SITUATION BUT CONFUSED. FAMILY PRESENT AT BEDSIDE. PT HIGH BP OF 181/115 HYDRALAZINE GIVEN AND AFTER REASSESSMENT CAME BACK TO 128/70. PT ON FULL LIQIDS AND ROCIO IT WELL. WILL BE NPO AFTER MIDNIGHT FOR A PIPIDA TEST IN THE MORNING. FALL PREC IN PLACE AND WILL CONT WITH POC TILL EOS
[2018-12-17 03:45] LABS: ABSOLUTE NEUTROPHILS 3.7 thou/uL (1.4-8.2); BASOPHILS 0.7 % (0.0-2.0); EOSINOPHILS 1.9 % (0.0-3.0); HEMATOCRIT 33.1 % (37.0-47.0); HEMOGLOBIN 10.9 gm/dL (12.0-15.0); LYMPHOCYTES 27.7 % (24.0-44.0); MCH 29.6 pg (26.0-34.0); MCV 89.8 fL (80.0-100.0); MONOCYTES 10.7 % (1.0-8.0); PLATELET COUNT 257 thou/uL (150-400); RBC 3.68 mil/uL (4.20-5.00); RDW 13.6 % (10.5-14.5); WBC 6.3 thou/uL (4.0-11.0)
[2018-12-17 03:58] LABS: CALCIUM 9.1 mg/dL (8.5-10.1); CREATININE 1.2 mg/dL (0.6-1.0); MAGNESIUM 2.3 mg/dL (1.8-2.4); PHOSPHORUS 2.9 mg/dL (2.5-4.9); POTASSIUM 3.3 mmol/L (3.5-5.1); TOTAL BILIRUBIN 0.6 mg/dL (<0.1-1.0); TOTAL PROTEIN 6.7 g/dL (6.4-8.2)
[2018-12-17 05:15] VITALS: BP 148/72
[2018-12-17 07:35] VITALS: BP 146/82
[2018-12-17 19:20] VITALS: BP 141/90
--- NOTE | 2018-12-17 20:04 | NUR ---
ASSUMED CARE OF PATIENT AT 0715, PATIENT ALERT WITH CONFUSION. PATIENT DENIES PAIN THIS SHIFT. PATIENT WAS NPO THIS AM UNTIL AROUND 1230 FOR NM TEST. THIS RN NOTIFIED IV TEAM OF IV NOT FLUSHING, VELASQUEZ/IV TEAM CAME TO FIX IV, BUT DIDNT REMOVE STATED PLUSHING OK. PATIENT WENT DOWN FOR TEST, IV NOT GOOD, CONTRAST INSERTED PER DENNISE, IV NOT GOOD, TEST NOT DONE. THIS RN NOTIFIED DR SMITH, SHE MAY REPEAT TEST ON THURSDAY. THIS RN NOTOFIED IV TEAM, VELASQUEZ CAME AND CHANGED IV OUT LEFT FOREARM. FAMILY AT BEDSIDE ALL DAY. DIET CHANGED TO REGULAR, PATIENT ATE SMALL AMT. NO SUPPLEMENTS DRANK TODAY. LACTULOSE GIVEN WITH LARGE AMT OF LOOSE STOOL REPORTED. FALL PRECAUTIONS IN PLACE. WILL CONTINUE TO MONITOR.
--- NOTE | 2018-12-18 02:28 | NUR ---
ASSESSMENT COMPLETED.PT C/O ABD PAIN,MANAGED WITH MED.PT ALERT WITH CONFUSION,FAMILY AT BEDSIDE FOR ASSISTANCE.LOOSE BM REPORTED BY DTR X1 SO FAR THIS SHIFT.PT AND FAMILY REMINDED TO USE CALL LIGHT FOR ASSISTANCE,NOT COMPLIANT.PT RESTING ON HER BED AT THIS TIME.CALL LIGHT WITHIN REACH.
[2018-12-18 07:27] VITALS: BP 148/71
--- NOTE | 2018-12-18 11:26 | HC ---
[facility] [place] [address] CONSULTATION Name: SANTIAGOTRISTIN Room #: 446-P ADM IN M.R.#: [id number] Admission: 12/13/18 Attend Phys: Eren Maguire MD Discharge: Date of : 33 Report #: [id number] THIS REPORT FOR: //name// CC: Eren Dimas DATE OF SERVICE: 12/17/2018 HISTORY OF PRESENT ILLNESS: The patient is an 83-year-old female who was admitted with abdominal pain. The patient has a history of dementia. She is a fair historian. Family members are present at this time and giving history as well. Apparently, the patient has been having diarrhea recently. She underwent a CT scan of the abdomen and pelvis on 12/13/2018. A 2.1 x 1.8 x 2.8 cm heterogeneous enhancing mass along the posterior aspect of the left kidney concerning for renal cell carcinoma was noted. Cholelithiasis was also seen. No evidence of acute cholecystitis. Retained stool within the colon as well as fluid and air fluid levels within the transverse colon, which can be seen and enteritis, colitis without significant mucosal thickening or evidence of bowel obstruction. No ascites was noted. The patient was placed on lactulose. She had a KUB done yesterday showing a large amount of stool seen in the ascending and sigmoid colon without significant interval change. Ultrasound of the abdomen on 12/15/2018 showed a large gallbladder calculus identified, a large cyst in the right kidney and limited exam of the left kidney. The patient's family states that she had a bowel movement approximately 1 hour ago. She still complains of periumbilical pain in general. There has been no nausea or vomiting. Apparently, her appetite has been fair per family members. Family also states her weight has been fairly stable recently. There has been no history of GI bleed. They believe she had a colonoscopy, but this was many years ago. PAST MEDICAL AND SURGICAL HISTORY: Hypertension, previous abdominal surgery for cancer removal in 2002. I do not have any other specifics. Osteoporosis, renal mass, cholelithiasis. ALLERGIES: IODINE AND PENICILLINS. SOCIAL HISTORY: She denies any tobacco or alcohol use. FAMILY HISTORY: Negative for colon cancer. PHYSICAL EXAMINATION: VITAL SIGNS: Temperature is 98.1, pulse 90, blood pressure 141/90, respiratory rate is 18. GENERAL: She is in no acute distress. She does answer questions. HEENT: Sclerae nonicteric. Oropharynx clear. [facility] [address] [place] [address] CONSULTATION Name: TRISTIN HENDERSON Room #: [address] [place] [address] [place] [facility].#: [id number] Admission: 12/13/18 Attend Phys: Eren Maguire MD Discharge: Date of : 33 Report #: [id number] NECK: Supple, without lymphadenopathy. CARDIOVASCULAR: Regular rate with systolic ejection murmur noted. CHEST: Clear to auscultation anteriorly bilaterally. ABDOMEN: Soft. She is nondistended. She has chronic scarring of her abdomen. She is tender to palpation in the periumbilical region. Positive bowel sounds. EXTREMITIES: No cyanosis, clubbing or edema. LABORATORY DATA: Sodium 143, potassium is 3.3, chloride 108, bicarbonate 25, BUN 10, creatinine is 1.2, AST 15, lipase 168, total bilirubin 0.6, alkaline phosphatase 80, ALT is 9, total protein 6.7, albumin 3.0, lactic acid level on the 12/13/2018 was 1.8. WBC 6.3, hemoglobin 10.9, platelet count is 256. CURRENT MEDICATIONS: Morphine p.r.n., lactulose 20 g daily, vitamin B12, amlodipine, hydralazine, Tylenol p.r.n., Zofran p.r.n. ASSESSMENT AND PLAN: 1. Abdominal pain, etiology is unclear at this time. CT and KUB showing a large amount of stool, constipation could be playing a role, may need to consider digital exam tomorrow to rule out the possibility of fecal impaction, although there is no mention of that on CT. Agree with lactulose at this time. May consider MiraLax or Amitiza in the near future. 2. Cholelithiasis. No evidence of gallbladder wall thickening. Plan was to potentially get a PIPIDA scan. Apparently, family is against surgery in general. It appears PIPIDA scan was canceled earlier today. Doubt this is the cause of her abdominal pain, based on the location of her pain mostly being periumbilical. 3. Left renal mass concerning for possible renal cell carcinoma. Family members apparently do not want to proceed with a biopsy. We will continue to follow. Thank you for allowing me to participate in her care. <ELECTRONICALLY SIGNED> By: Omkar Carter MD 12/18/18 1126 00 0355 Omkar Carter MD /nt
[2018-12-18 15:49] VITALS: BP 155/69
--- NOTE | 2018-12-18 19:29 | NUR ---
PT A&OX3, COFUSED AT TIMES. IV INTACT IN L FA AND R AC. NO REPORT OF BM FROM HER FAMILY THEY ARE WITH HER THROUGHOUT THE DAY. ABD IS SOFT NON TENDER.
[2018-12-18 20:39] VITALS: BP 152/103
[2018-12-19 04:45] VITALS: BP 155/93
--- NOTE | 2018-12-19 04:46 | NUR ---
NO C/O PAIN NOTED FROM PT SO FAR THIS SHIFT.PT ALERT WITH CONFUSION.FAMILY AT HER BEDSIDE THROUGHT THE SHIFT ASSISTING HER.PT HAD BM X1 THIS SHIFT PER FAMILY.PT RESTING ON HER BED AT THIS TIME.FALL PRECAUTIONS IN PLACE,CALL LIGHT WITHIN REACH.
[2018-12-19 09:17] VITALS: BP 129/67
[2018-12-19 11:46] LABS: ABSOLUTE NEUTROPHILS 3.8 thou/uL (1.4-8.2); EOSINOPHILS 2.3 % (0.0-3.0); HEMATOCRIT 33.8 % (37.0-47.0); LYMPHOCYTES 23.9 % (24.0-44.0); MCH 29.4 pg (26.0-34.0); MCHC 32.7 g/dL (28.0-37.0); MCV 90.1 fL (80.0-100.0); MONOCYTES 8.9 % (1.0-8.0); PLATELET COUNT 265 thou/uL (150-400); POLYS 63.9 % (36.0-66.0); RBC 3.75 mil/uL (4.20-5.00); RDW 13.9 % (10.5-14.5)
[2018-12-19 12:07] LABS: ALBUMIN 3.2 g/dL (3.4-5.0); CALCIUM 9.4 mg/dL (8.5-10.1); CREATININE 1.2 mg/dL (0.6-1.0); MAGNESIUM 2.2 mg/dL (1.8-2.4); POTASSIUM 3.3 mmol/L (3.5-5.1); TOTAL BILIRUBIN 0.5 mg/dL (<0.1-1.0); TOTAL PROTEIN 7.1 g/dL (6.4-8.2)
[2018-12-19] MEDS ORDERED: AMITIZA8 MCG PO (15:34)
[2018-12-19 16:04] VITALS: BP 129/67
--- NOTE | 2018-12-19 17:39 | NUR ---
DC ORDERS RECEIVED. IV REMOVED FROM L AND R AC. DC INSTRUCTIOS AND FOLLOW UP APPOINTMENT REVIEWED WITH PT, CALLED SCRIPT INTO PHARMACY. THIS NURSE ESCORTED PT TO MAIN ENTRANCE.
== END 2018-12-19 17:15 | disposition home or self-care (01) | DRG 392 ==
LOC: ER 15:39 → EROBS 18:22 → 4S 18:22
PROVIDERS: Emergency Medicine; Internal Medicine; ADMIT Hospitalist
DX: K59.00 Constipation, unspecified (principal); E44.0 Moderate protein-calorie malnutrition; N17.9 Acute kidney failure, unspecified; K52.9 Noninfective gastroenteritis and colitis, unspecified; K80.20 Calculus of gallbladder without cholecystitis without obstruction; F03.90 Unspecified dementia, unspecified severity, without behavioral disturbance, psychotic disturbance, mood disturbance, and anxiety; D63.8 Anemia in other chronic diseases classified elsewhere; M81.0 Age-related osteoporosis without current pathological fracture; N18.3 Chronic kidney disease, stage 3 (moderate); I12.9 Hypertensive chronic kidney disease with stage 1 through stage 4 chronic kidney disease, or unspecified chronic kidney disease; Z68.23 Body mass index [BMI] 23.0-23.9, adult; Z88.0 Allergy status to penicillin; Z91.041 Radiographic dye allergy status
CPT/HCPCS: 10100; 10195

== ENCOUNTER 2018-12-31 15:52 | Inpatient (IN) | payer OTHER ==
[~2018-12-31] VITALS: Ht 172.7 cm; Wt 58.1 kg
[~2018-12-31 15:52] MED LIST changes: +AMITIZA8 MCG PO; +NEURONTIN 300300 M1 PO
[2018-12-31 16:02] VITALS: BP 149/79
[2018-12-31 18:05] LABS: CALCIUM 9.7 mg/dL (8.5-10.1); CREATININE 1.2 mg/dL (0.6-1.0); POTASSIUM 3.6 mmol/L (3.5-5.1)
[2018-12-31 18:11] LABS: TOTAL BILIRUBIN 0.8 mg/dL (<0.1-1.0); TOTAL PROTEIN 8.5 g/dL (6.4-8.2)
[2018-12-31 19:52] LABS: BASOPHILS 0.5 % (0.0-2.0); EOSINOPHILS 1.2 % (0.0-3.0); HEMATOCRIT 37.2 % (37.0-47.0); HEMOGLOBIN 12.2 gm/dL (12.0-15.0); LYMPHOCYTES 16.5 % (24.0-44.0); MCH 29.6 pg (26.0-34.0); MCHC 32.8 g/dL (28.0-37.0); MCV 90.2 fL (80.0-100.0); MONOCYTES 8.1 % (1.0-8.0); PLATELET COUNT 246 thou/uL (150-400); POLYS 73.7 % (36.0-66.0); RBC 4.12 mil/uL (4.20-5.00); RDW 13.8 % (10.5-14.5); WBC 10.9 thou/uL (4.0-11.0)
[2018-12-31 23:10] VITALS: BP 176/105
[2018-12-31 23:42] VITALS: BP 159/79
[2018-12-31 23:46] VITALS: BP 154/65
--- NOTE | 2019-01-01 02:00 | NUR ---
PATIENT ADMITTED FROM ER AT 2230. CHIEF COMPLAINT IS ABDOMINAL PAIN AND CONSTIPATION. FAMILY (SON) IS AT BEDSIDE. PATIENT IS DROWSY, ORIENTED TO HERSELF, PLACE, TIME AND SITUATION. PATIENT FOLLOWS COMMANDS WELL. ASSESSMENT DONE WITH ASSISTANCE FROM AMAURY OTERO. VSS, O2 WNL ON RA. PATIENT DENIES PAIN BUT SON STATES SHE EXPERIENCES PAIN IN ABDOMEN AND RECTAL AREA. CONSSENTS SIGNED. SUPPOSITORY GIVEN PER ORDER. PATIENT IS ON MAINTNENCE FLUIDS PER ORDER. FALL PRECAUTIONS IN PLACE, FAMILY EDUCATED ON CALLING FOR ASSISTANCE FOR BATHROOM. WILL CONTINUE TO MONITOR PATIENT AND FREQUENTLY CHECK FOR A BM.
--- NOTE | 2019-01-01 03:50 | NUR ---
PT HAD A LOOSE BM THIS AM,INCONTINENCE NOTED ON THE BED.COMPLETE BED CHANGE DONE WITH ASSISTANCE OF POWER PRESS SUPERVISOR.PT RESTING ON HER BED AT THIS TIME.WILL CONT TO MONITOR.
[2019-01-01 04:36] VITALS: BP 168/114
[2019-01-01 06:03] LABS: CALCIUM 9.2 mg/dL (8.5-10.1); CREATININE 1.1 mg/dL (0.6-1.0); POTASSIUM 3.2 mmol/L (3.5-5.1)
[2019-01-01 08:18] VITALS: BP 141/91
--- NOTE | 2019-01-01 14:44 | NUR ---
ASSUMED CARE OF PT AT 0700. PT HAS FECAL IMPACTION. MEDICATION ORDERED AND PT HAS DIARRHEA. PT IS USING THE BEDSIDE COMMODE ALONG WITH A GAIT BELT AND WALKER. PT WANTS DIET TO ADVANCE TO REGULAR BY DINNER. LUNG SOUNDS ARE CLEAR. PT IS VERY WEAK FROM HAVING MULTIPLE BM. A UA HAS NOT BEEN COLLECTED BECAUSE PT HAS NOT BEEN ABLE TO HAVE A CLEAN CATCH URINE STREAM DUE TO DIARRHEA. FALL PRECAUTIONS ARE IN PLACE. BED IN LOWEST POSITION AND CALL LIGHT IS WITHIN REACH. WILL CONTINUE TO MONITOR THE PT.
[2019-01-01 17:56] VITALS: BP 146/73
[2019-01-01 20:20] VITALS: BP 130/70
[2019-01-02 04:50] VITALS: BP 147/77
--- NOTE | 2019-01-02 08:15 | NUR ---
PT TRANSFERRING TO BEDSIDE COMMODE WITH ASSIST X1 AND IS TOLERATING FAIR. DENIES PAIN. RESTING COMFORTABLY. NO NEEDS VOICED. CALL LIGHT WITHIN REACH. WILL CONTINUE TO PROVIDE FREQUENT OBSERVATION.
[2019-01-02 08:59] VITALS: BP 149/78
[2019-01-02] MEDS ORDERED: MIRALAX17 GM PO (13:19)
[2019-01-02] MEDS ORDERED: SENNA-TIME S T1 EACH PO (13:20)
--- NOTE | 2019-01-02 15:25 | NUR ---
ASSUMED CARE OF PT AT APPROX 0700. PT IS ALERT AND ORIENTED TO SELF. CONFUSED BUT EASILY REORIENTED AND FOLLOWS DIRECTION WELL. DENIES PAIN AND SOA. BED ALARM IN PLACE FOR SAFETY PT IS A HIGH FALL RISK. ASSESSMENT CHARTED. RECIEVED ORDER FOR DC. WILL COMPLETE DC AND UPDATE.
[2019-01-02 15:36] VITALS: BP 149/78
== END 2019-01-02 16:21 | disposition home or self-care (01) | DRG 392 ==
LOC: ER 15:52 → EROBS 22:16 → 4S 23:38
PROVIDERS: Nurse Practitioner; Nurse Practitioner Family; ADMIT Hospitalist
DX: K59.00 Constipation, unspecified (principal); F03.90 Unspecified dementia, unspecified severity, without behavioral disturbance, psychotic disturbance, mood disturbance, and anxiety; N18.3 Chronic kidney disease, stage 3 (moderate); I12.9 Hypertensive chronic kidney disease with stage 1 through stage 4 chronic kidney disease, or unspecified chronic kidney disease; K80.20 Calculus of gallbladder without cholecystitis without obstruction; N28.89 Other specified disorders of kidney and ureter; Z79.899 Other long term (current) drug therapy; Z88.0 Allergy status to penicillin; Z91.041 Radiographic dye allergy status
CPT/HCPCS: 10195

== ENCOUNTER 2019-02-27 15:34 | Emergency (ER) | payer OTHER ==
[~2019-02-27] VITALS: Ht 167.6 cm; Wt 58.8 kg
[~2019-02-27 15:34] MED LIST changes: +MIRALAX17 GM PO; +SENNA-TIME S T1 EACH PO
[2019-02-27 16:08] LABS: ABSOLUTE NEUTROPHILS 5.9 thou/uL (1.4-8.2); EOSINOPHILS 1.3 % (0.0-3.0); HEMATOCRIT 33.8 % (37.0-47.0); HEMOGLOBIN 11.2 gm/dL (12.0-15.0); LYMPHOCYTES 20.3 % (24.0-44.0); MCH 29.3 pg (26.0-34.0); MCV 88.7 fL (80.0-100.0); MONOCYTES 6.2 % (1.0-8.0); PLATELET COUNT 275 thou/uL (150-400); POLYS 71.2 % (36.0-66.0); RBC 3.81 mil/uL (4.20-5.00); RDW 13.3 % (10.5-14.5); WBC 8.3 thou/uL (4.0-11.0)
[2019-02-27 16:19] LABS: CALCIUM 9.6 mg/dL (8.5-10.1); CREATININE 1.4 mg/dL (0.6-1.0)
[2019-02-27 16:21] LABS: POTASSIUM 4.9 mmol/L (3.5-5.1)
[2019-02-27 16:25] LABS: ALBUMIN 3.5 g/dL (3.4-5.0); TOTAL BILIRUBIN 0.5 mg/dL (<0.1-1.0); TOTAL PROTEIN 8.5 g/dL (6.4-8.2)
[2019-02-27 17:02] LABS: URINE BILIRUBIN NEGATIVE (Negative); URINE BLOOD NEGATIVE (Negative); URINE CLARITY CLEAR; URINE COLOR YELLOW; URINE GLUCOSE-RANDOM* NEGATIVE (Negative); URINE KETONES NEGATIVE (Negative); URINE LEUKOCYTES-REFLEX TRACE (Negative); URINE NITRITE-REFLEX NEGATIVE (Negative); URINE PROTEIN (DIPSTICK) NEGATIVE (Negative)
[2019-02-27 18:22] VITALS: BP 173/77
== END 2019-02-27 18:23 | disposition home or self-care (01) ==
LOC: ER 15:34
PROVIDERS: Nurse Practitioner Family
DX: E86.0 Dehydration (principal); R19.7 Diarrhea, unspecified; R53.1 Weakness; I12.9 Hypertensive chronic kidney disease with stage 1 through stage 4 chronic kidney disease, or unspecified chronic kidney disease; N18.3 Chronic kidney disease, stage 3 (moderate); F03.90 Unspecified dementia, unspecified severity, without behavioral disturbance, psychotic disturbance, mood disturbance, and anxiety; Z86.2 Personal history of diseases of the blood and blood-forming organs and certain disorders involving the immune mechanism; Z88.0 Allergy status to penicillin; Z88.8 Allergy status to other drugs, medicaments and biological substances

== ENCOUNTER 2019-05-06 12:53 | Emergency (ER) | payer OTHER ==
[~2019-05-06] VITALS: Ht 167.6 cm; Wt 56.7 kg
[2019-05-06 14:16] LABS: ABSOLUTE NEUTROPHILS 2.3 thou/uL (1.4-8.2); BASOPHILS 0.9 % (0.0-2.0); EOSINOPHILS 1.8 % (0.0-3.0); HEMOGLOBIN 10.4 gm/dL (12.0-15.0); LYMPHOCYTES 35.6 % (24.0-44.0); MCH 29.1 pg (26.0-34.0); MCHC 32.5 g/dL (28.0-37.0); MCV 89.6 fL (80.0-100.0); MONOCYTES 7.7 % (1.0-8.0); PLATELET COUNT 260 thou/uL (150-400); RBC 3.57 mil/uL (4.20-5.00); RDW 14.4 % (10.5-14.5); WBC 4.3 thou/uL (4.0-11.0)
[2019-05-06 14:27] LABS: URINE BILIRUBIN NEGATIVE (Negative); URINE BLOOD NEGATIVE (Negative); URINE CLARITY CLEAR; URINE COLOR YELLOW; URINE GLUCOSE-RANDOM* NEGATIVE (Negative); URINE KETONES NEGATIVE (Negative); URINE LEUKOCYTES-REFLEX TRACE (Negative); URINE NITRITE-REFLEX NEGATIVE (Negative); URINE PROTEIN (DIPSTICK) NEGATIVE (Negative); URINE SPECIFIC GRAVITY 1.015 (1.005-1.035); URINE UROBILINOGEN 0.2 E.U./dl (0.2-1.0)
[2019-05-06 14:28] LABS: CALCIUM 9.5 mg/dL (8.5-10.1); CREATININE 1.4 mg/dL (0.6-1.0); POTASSIUM 3.5 mmol/L (3.5-5.1)
[2019-05-06 14:35] LABS: ALBUMIN 3.3 g/dL (3.4-5.0); TOTAL BILIRUBIN 0.3 mg/dL (<0.1-1.0); TOTAL PROTEIN 7.3 g/dL (6.4-8.2)
[2019-05-06] MEDS ORDERED: MIRALAX119 GM PO (18:12)
[2019-05-06] MEDS ORDERED: SENNA-DOCUSATE1 EAC1 PO (18:12)
[2019-05-06 18:31] VITALS: BP 153/93
== END 2019-05-06 18:32 | disposition home or self-care (01) ==
LOC: ER 12:53
PROVIDERS: Emergency Medicine
DX: K59.00 Constipation, unspecified (principal); R11.2 Nausea with vomiting, unspecified; R19.7 Diarrhea, unspecified; I12.9 Hypertensive chronic kidney disease with stage 1 through stage 4 chronic kidney disease, or unspecified chronic kidney disease; N18.3 Chronic kidney disease, stage 3 (moderate); F03.90 Unspecified dementia, unspecified severity, without behavioral disturbance, psychotic disturbance, mood disturbance, and anxiety; Z79.899 Other long term (current) drug therapy; Z91.041 Radiographic dye allergy status; Z88.0 Allergy status to penicillin

== ENCOUNTER 2019-09-21 07:31 | Emergency (ER) | payer OTHER ==
[~2019-09-21] VITALS: Ht 167.6 cm; Wt 59.4 kg
[~2019-09-21 07:31] MED LIST changes: +MIRALAX119 GM PO; +SENNA-DOCUSATE1 EAC1 PO
[2019-09-21 08:08] LABS: URINE BILIRUBIN NEGATIVE (Negative); URINE BLOOD NEGATIVE (Negative); URINE CLARITY CLEAR; URINE COLOR YELLOW; URINE GLUCOSE-RANDOM* NEGATIVE (Negative); URINE KETONES NEGATIVE (Negative); URINE LEUKOCYTES-REFLEX NEGATIVE (Negative); URINE NITRITE-REFLEX NEGATIVE (Negative); URINE PROTEIN (DIPSTICK) NEGATIVE (Negative); URINE SPECIFIC GRAVITY 1.015 (1.005-1.035); URINE UROBILINOGEN 0.2 E.U./dl (0.2-1.0)
[2019-09-21] MEDS ORDERED: NORVASC5 MG PO (08:24)
[2019-09-21] MEDS ORDERED: TIZANIDINE4 MG/1 TA1 PO (08:24)
[2019-09-21] MEDS ORDERED: BENAZEPRIL HCL20 MG PO (08:24)
[2019-09-21 08:27] LABS: AMP/METHAMP Negative (Negative); BARBITURATES Negative (Negative); BENZODIAZEPINES Negative (Negative); COCAINE Negative (Negative); METHADONE Negative (Negative); OPIATES Negative (Negative); PCP Negative (Negative)
[2019-09-21 08:39] LABS: ABSOLUTE NEUTROPHILS 3.1 thou/uL (1.4-8.2); BASOPHILS 0.6 % (0.0-2.0); EOSINOPHILS 1.5 % (0.0-3.0); HEMOGLOBIN 10.5 gm/dL (12.0-15.0); LYMPHOCYTES 32.3 % (24.0-44.0); MCH 30.4 pg (26.0-34.0); MCHC 32.9 g/dL (28.0-37.0); MCV 92.6 fL (80.0-100.0); MONOCYTES 11.2 % (1.0-8.0); PLATELET COUNT 215 thou/uL (150-400); POLYS 54.4 % (36.0-66.0); RBC 3.46 mil/uL (4.20-5.00); RDW 13.9 % (10.5-14.5); WBC 5.7 thou/uL (4.0-11.0)
[2019-09-21 08:51] LABS: ANION GAP 8 mmol/L (7-16); BUN 24 mg/dL (7-18); CALCIUM 9.2 mg/dL (8.5-10.1); CHLORIDE 105 mmol/L (98-107); CO2 23 mmol/L (21-32); CREATININE 1.4 mg/dL (0.6-1.0); GLUCOSE 101 mg/dL (74-106); POTASSIUM 4.2 mmol/L (3.5-5.1); SODIUM 136 mmol/L (136-145)
[2019-09-21 09:00] LABS: TROPONIN-I <0.06 ng/mL (<0.06)
[2019-09-21 10:30] VITALS: BP 154/76
--- NOTE | 2019-09-23 08:35 | EKG ---
[facility] [place] [address] ELECTROCARDIOGRAM REPORT Name: TRISTIN HENDERSON Room #: DEP [facility] [id number] Admission: 09/21/19 Attend Phys: Discharge: 09/21/19 Date of : 31 Report #: [id number] THIS REPORT FOR: cc: Ariela Dimas MD, Karla L. MD Lundgren,Collins Tovar MD [facility] ~ THIS REPORT FOR: //name// [facility] ED Test Date: 2019-09-21 Test Time: 07:46:35 Pat Name: TRISTIN HENDERSON Department: Room: Gender: F Manager Community Outreach: JOSEPH : 1935 Requested By: Amaris Bledsoe Order Number: [id number] MD: Collins Khan Measurements Intervals [place] Rate: 56 P: 28 ND: 200 QRS: -14 QRSD: 98 T: 58 QT: 401 QTc: 387 Interpretive Statements Sinus bradycardia Probable anteroseptal infarct, old Compared to ECG 12/13/2018 16:27:28 No significant change was found Electronically Signed On 09-23-2019 8:35:46 CDT by Collins Khan [email or web address] <ELECTRONICALLY SIGNED> By: Collins Khan MD, [facility] 09/23/19 0835 [id number] Collins Khan MD, [facility] /EPI
== END 2019-09-21 10:30 | disposition home or self-care (01) ==
LOC: ER 07:31
PROVIDERS: Emergency Medicine
DX: R41.0 Disorientation, unspecified (principal); I12.9 Hypertensive chronic kidney disease with stage 1 through stage 4 chronic kidney disease, or unspecified chronic kidney disease; N18.3 Chronic kidney disease, stage 3 (moderate); Z79.899 Other long term (current) drug therapy; Z88.0 Allergy status to penicillin; Z88.8 Allergy status to other drugs, medicaments and biological substances; Z86.2 Personal history of diseases of the blood and blood-forming organs and certain disorders involving the immune mechanism